=== PATIENT | male | born 1960 | race Caucasian/White ===

== ENCOUNTER 2017-12-03 17:27 | Emergency (ER) | payer MEDICARE, OTHER, SELFPAY ==
--- NOTE | 2017-12-03 18:25 | ED.PDOC ---
History of Present Illness - General Chief Complaint: Neuro Symptoms/Deficits Stated Complaint: seizure Time Seen by Provider: 12/03/17 17:45 Source: patient, family, EMS Exam Limitations: clinical condition - History of Present Illness Initial Comments: patient was originally brought in by EMS accompanied by his fiance for seizure activity. Patient was at [facility] and fell and had a tonic-clonic seizure for approximately 4 minutes. At that time his girlfriend states she never see it last that long and he seemed to stop breathing. Bystanders started CPR although he did feel a faint pulse prior to starting compressions. Patient on arrival was post ictal but currently is awake and alert and denies any pain or discomfort. Patient states he did have surgery on his back last week and is taking medication that can potentially lower his seizure threshold. Patient's last seizure was 3 months ago. Patient does not have any fever, chills, headache, vision change, or altered LOC now. He has no chest pain or shortness of breath. Patient denies any pain or injury from fall. Timing/Duration: 1/2 hour Severity: severe Improving Factors: nothing Worsening Factors: nothing Associated Symptoms: denies symptoms Allergies/Adverse Reactions: Allergies NO KNOWN ALLERGY Allergy (Unverified 03/16/13 13:34) Home Medications: Ambulatory Orders Phenytoin Sodium Cap Extended [Dilantin Cap] 500 mg PO DAILY 7 Days #7 cap 12/03 Review of Systems - Review of Systems Constitutional: States: no symptoms reported. Denies: chills, diaphoresis, fever, weakness EENTM: States: no symptoms reported. Denies: eye pain, ear pain, throat pain Respiratory: States: no symptoms reported. Denies: cough, orthopnea, wheezing Cardiology: States: no symptoms reported. Denies: chest pain, edema, palpitations Gastrointestinal/Abdominal: States: no symptoms reported. Denies: abdominal pain, diarrhea, nausea, vomiting Genitourinary: States: no symptoms reported Musculoskeletal: States: no symptoms reported Neurological: States: seizure Past Medical History (General) - Patient Medical History Hx Seizures: Yes - started 8 years ago no trauma Physical Exam - Physical Exam General Appearance: No apparent distress Eye Exam: bilateral normal ENT Exam: normal ENT inspection, hearing grossly normal, TMs normal, pharynx normal, nasal congestion Neck: non-tender, full range of motion, supple, normal inspection, trachea midline Respiratory: chest non-tender, lungs clear, normal breath sounds, no respiratory distress Cardiovascular/Chest: normal peripheral pulses, regular rate, rhythm, no edema, no gallop, no JVD, no murmur Peripheral Pulses: radial,right: 2+, radial,left: 2+, posterior tibialis,right: 2+, posterior tibialis,left: 2+ Gastrointestinal/Abdominal: normal bowel sounds, non tender, soft, no organomegaly, no pulsatile mass Back Exam: normal inspection Extremities Exam: non-tender, normal range of motion, no evidence of injury Mental Status: alert, 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 30 minutes after initial evaluation patient was awake and exam was as above. Progress - Progress Progress: 12/03/17 18:46 12/03/17 17:46 URINE DRUG SCREEN, 7 ASSAY Stat URINALYSIS Stat Laboratory Results WBC 10.4 K/mm3 (4.8-10.8) 12/03/17 17:50 RBC 3.73 M/mm3 (4.70-6.10) L 12/03/17 17:50 Hgb 10.8 gm/dL (14.0-18.0) L 12/03/17 17:50 Hct 32.3 % (42.0-52.0) L 12/03/17 17:50 MCV 86.6 fl (80.0-94.0) 12/03/17 17:50 MCH 28.9 pg (27.0-31.0) 12/03/17 17:50 MCHC 33.3 g/dL (33.0-37.0) 12/03/17 17:50 RDW 14.7 % (11.5-14.5) H 12/03/17 17:50 Plt Count 367 K/mm3 (130-400) 12/03/17 17:50 MPV 6.7 fl (7.40-10.4) L 12/03/17 17:50 Absolute Neuts (auto) 6.70 K/uL (1.8-6.8) 12/03/17 17:50 Absolute Lymphs (auto) 2.70 K/uL (1.0-3.4) 12/03/17 17:50 Absolute Monos (auto) 0.80 K/uL (0.2-0.8) 12/03/17 17:50 Absolute Eos (auto) 0.10 K/uL (0.0-0.4) 12/03/17 17:50 Absolute Basos (auto) 0.10 K/uL (0.0-0.1) 12/03/17 17:50 Neutrophils % 64.6 % (42.0-78.0) 12/03/17 17:50 Lymphocytes % 26.2 % (20.0-50.0) 12/03/17 17:50 Monocytes % 7.8 % (2.0-9.0) 12/03/17 17:50 Eosinophils % 0.7 % (1.0-5.0) L 12/03/17 17:50 Basophils % 0.7 % (0.0-2.0) 12/03/17 17:50 Sodium 136 mmol/L (135-145) 12/03/17 17:50 Potassium 3.6 mmol/L (3.6-5.0) 12/03/17 17:50 Chloride 103 mmol/L (101-111) 12/03/17 17:50 Carbon Dioxide 18 mmol/L (21-31) L 12/03/17 17:50 Anion Gap 18.6 (12-18) H 12/03/17 17:50 BUN 18 mg/dL (7-18) 12/03/17 17:50 Creatinine 0.90 mg/dL (0.6-1.3) 12/03/17 17:50 BUN/Creatinine Ratio 20.0 (10-20) 12/03/17 17:50 Random Glucose 113 mg/dL (70-105) H 12/03/17 17:50 Serum Osmolality 274.7 mOsm/L (275-295) L 12/03/17 17:50 Calcium 9.4 mg/dL (8.4-10.2) 12/03/17 17:50 Total Bilirubin 0.3 mg/dL (0.2-1.0) 12/03/17 17:50 AST 26 IU/L (10-42) 12/03/17 17:50 ALT 20 IU/L (10-60) 12/03/17 17:50 Alkaline Phosphatase 142 IU/L (42-121) H 12/03/17 17:50 Serum Total Protein 6.8 gm/dL (6.4-8.2) 12/03/17 17:50 Albumin 3.6 g/dl (3.2-5.5) 12/03/17 17:50 Globulin 3.2 gm/dL (2.3-3.5) 12/03/17 17:50 Albumin/Globulin Ratio 1.1 (1.1-1.9) 12/03/17 17:50 Phenytoin < 2.5 ug/mL (10.0-20.0) L 12/03/17 18:27 Patient Name: MUSA BLOUNT Gender: Male Date of : 1960 Referring Physician: ROX HERNADEZ Organization: [facility] Accession Number: [id number] Requested Date: December 03, 2017 17:46 Report Status: Final Requested Procedure: 1 Procedure Description: Head Modality: CT Findings Reporting MD: Virgil Grove Fellow MD: Not available Dictation Time: Wheel Polisher: Not available Card Stripper Date: EXAM DESCRIPTION: Head CLINICAL HISTORY: altered LOC/ seizure COMPARISON: None available TECHNIQUE: Noncontrast head CT was performed with routine protocol. FINDINGS: Normal locke-white matter differentiation. Ventricles and sulci are normal for age. No high density hemorrhage, focal edema or shift of the midline. No sulcal effacement. Normal orbital contents. Basilar cisterns appear clear. Intact calvarium with no fracture or lytic lesion. Normal aeration of tympanic cavities and mastoid air cells. No fluid levels in the paranasal sinuses. Skull base appears intact. Symmetrical internal auditory canals. IMPRESSION: No acute intracranial pathologic process. This exam was performed according to our departmental dose-optimization program, which includes automated exposure control, adjustment of the mA and/or kV according to patient size and/or use of iterative reconstruction technique. Total DLP equals 859.97 mGycm. Patient Name: MUSA BLOUNT Gender: Male Date of : 1960 Referring Physician: ROX HERNADEZ Organization: [facility] Accession Number: [id number] Requested Date: December 03, 2017 17:46 Report Status: Final Requested Procedure: 1 Procedure Description: Chest,2 Views Modality: CR Findings Reporting MD: Virgil Grove Fellow MD: Not available Dictation Time: Wheel Polisher: Not available Card Stripper Date: EXAM DESCRIPTION: Chest,2 Views CLINICAL HISTORY: r/o fracture s/p CPR by bystander COMPARISON: None TECHNIQUE: PA/lateral FINDINGS: There is no acute appearing cardiac or pulmonary abnormality. Heart size is normal with normal pulmonary vascularity. No pleural effusion or pneumothorax. Lungs are hyperexpanded with no consolidating infiltrate. Lateral view shows intact sternum and T-spine. Patient is status post CPR. No definite fractures of ribs, sternum or T-spine. Rib series or bone scan may be helpful. IMPRESSION: Hyperexpanded lungs. No consolidating infiltrate. 12/03/17 18:51 Discussed with patient his low Dilantin level. He states his doctor had not refilled his medication. He missed several days and then the pharmacist gave him 3 days of medication. We will give an additional 7 days so he can get into his doctor. Departure - Departure Clinical Impression: Seizure Disposition: Discharge to Home or Self Care Condition: Good Departure Forms: ED Discharge - Pt. Copy, Patient Portal Self Enrollment Diet: regular diet Home Medications: Ambulatory Orders Phenytoin Sodium Cap Extended [Dilantin Cap] 500 mg PO DAILY 7 Days #7 cap 12/03 Additional Instructions: patient given his home dose of medication and he should follow up with PCP in 2- 3 days to make sure he gets chronic prescription. Return to ER for altered LOC , increase in seizure activity.
--- NOTE | 2017-12-03 18:33 | CT ---
EXAM DESCRIPTION: Head CLINICAL HISTORY: altered LOC/ seizure COMPARISON: None available TECHNIQUE: Noncontrast head CT was performed with routine protocol. FINDINGS: Normal locke-white matter differentiation. Ventricles and sulci are normal for age. No high density hemorrhage, focal edema or shift of the midline. No sulcal effacement. Normal orbital contents. Basilar cisterns appear clear. Intact calvarium with no fracture or lytic lesion. Normal aeration of tympanic cavities and mastoid air cells. No fluid levels in the paranasal sinuses. Skull base appears intact. Symmetrical internal auditory canals. IMPRESSION: No acute intracranial pathologic process. This exam was performed according to our departmental dose-optimization program, which includes automated exposure control, adjustment of the mA and/or kV according to patient size and/or use of iterative reconstruction technique. Total DLP equals 859.97 mGycm. Electronically signed by: Virgil Grove MD 12/03/2017 6:32 PM CDT
--- NOTE | 2017-12-03 18:34 | RAD ---
EXAM DESCRIPTION: Chest,2 Views CLINICAL HISTORY: r/o fracture s/p CPR by bystander COMPARISON: None TECHNIQUE: PA/lateral FINDINGS: There is no acute appearing cardiac or pulmonary abnormality. Heart size is normal with normal pulmonary vascularity. No pleural effusion or pneumothorax. Lungs are hyperexpanded with no consolidating infiltrate. Lateral view shows intact sternum and T-spine. Patient is status post CPR. No definite fractures of ribs, sternum or T-spine. Rib series or bone scan may be helpful. IMPRESSION: Hyperexpanded lungs. No consolidating infiltrate. Electronically signed by: Virgil Grove MD 12/03/2017 6:33 PM CDT
[2017-12-03 19:18] VITALS: O2SAT 99
[2017-12-03 19:19] VITALS: BP 122/75
[2017-12-03 19:23] VITALS: TEMP 97.8
== END 2017-12-03 19:23 | disposition home or self-care (01) ==
LOC: ER 17:27
DX: G40.909 Epilepsy, unspecified, not intractable, without status epilepticus (principal); R06.00 Dyspnea, unspecified; Z79.899 Other long term (current) drug therapy